=== PATIENT | female | born 1945 | race Caucasian/White ===

== ENCOUNTER 2019-11-23 11:34 | Outpatient (CLI) | payer MEDICARE, SELFPAY ==
[2019-11-23 12:37] LABS: Alanine Aminotransferase 18 U/L (4-35); Albumin Level 4.5 g/dL (3.5-5.1); Alkaline Phosphatase 97 U/L (38-126); Aspartate Amino Transferase 25 U/L (14-36); Bilirubin,Total 0.9 mg/dL (0.2-1.3); Blood Urea Nitrogen 31 mg/dL (7-17); Calcium 9.8 mg/dL (8.4-10.2); Carbon Dioxide 29 mmol/L (22-30); Chloride 104 mmol/L (98-107); Estimated Glomerular Filt Rate 37; Glucose 99 mg/dL (65-105); Potassium 4.1 mmol/L (3.4-5.0); Sodium 141 mmol/L (137-145)
== END 2019-11-23 11:35 | disposition home or self-care (01) ==
PROVIDERS: PCP Family Medicine; Visit Provider Family Medicine
DX: N28.9 Disorder of kidney and ureter, unspecified (principal)
CPT/HCPCS: 36415; 80053

== ENCOUNTER 2020-05-18 13:47 | Outpatient (CLI) | payer MEDICARE, SELFPAY ==
[2020-05-18 14:36] LABS: Basophils Percent Auto 0.4 % (0.2-1.2); Eosinophils Absolute Auto 0.1 K/mm3 (0-0.3); Eosinophils Percent Auto 1.3 % (0-4.4); Hematocrit 40.7 % (37.0-47.0); Hemoglobin 13.5 g/dL (12.0-15.0); Immature Granulocyte Absolute 0.01 K/mm3 (0.00-0.031); Immature Granulocyte Percent A 0.2 % (0-0.5); Immature Platelet Fraction Pct 3.5 % (0.9-11.2); Lymphocytes Absolute Auto 1.49 K/mm3 (0.9-3.2); Lymphocytes Percent Auto 27.4 % (18.3-44.2); Mean Corpuscular HGB Conc 33.2 g/dl (32-36); Mean Corpuscular Hemoglobin 31.5 pg (26-34); Mean Corpuscular Volume 94.9 fl (80-100); Mean Platelet Volume 11.3 fl (7.4-10.4); Monocytes Absolute Auto 0.5 K/mm3 (0.1-0.6); Monocytes Percent Auto 9.4 % (2.6-8.5); Neutrophils Absolute Auto 3.3 K/mm3 (1.3-6.7); Neutrophils Percent Auto 61.3 % (45.5-73.1); Platelet Count Result 146 k/mm3 (150-375); Red Blood Count 4.29 M/mm3 (4.2-5.4); Red Cell Distribution Width 14.6 % (11.5-14.5); White Blood Count 5.4 K/mm3 (4.5-10.0)
[2020-05-18 14:49] LABS: Alanine Aminotransferase 15 U/L (4-35); Albumin Level 4.3 g/dL (3.5-5.1); Alkaline Phosphatase 86 U/L (38-126); Anion Gap 7 mmol/L (8-16); Aspartate Amino Transferase 26 U/L (14-36); Bilirubin,Total 0.5 mg/dL (0.2-1.3); Blood Urea Nitrogen 34 mg/dL (7-17); Calcium 9.2 mg/dL (8.4-10.2); Carbon Dioxide 27 mmol/L (22-30); Chloride 107 mmol/L (98-107); Estimated Glomerular Filt Rate 30; Glucose 106 mg/dL (65-105); Potassium 4.4 mmol/L (3.4-5.0); Sodium 141 mmol/L (137-145)
[2020-05-18 16:58] LABS: Hemoglobin A1C 5.3 % (<5.7)
== END 2020-05-18 13:48 | disposition home or self-care (01) ==
PROVIDERS: PCP Family Medicine; Visit Provider Family Medicine
DX: R73.03 Prediabetes (principal); I10 Essential (primary) hypertension
CPT/HCPCS: 36415; 80053; 83036; 85025; 85055

== ENCOUNTER 2020-10-12 11:14 | Outpatient (CLI) | payer MEDICARE, SELFPAY ==
[2020-10-12 12:32] LABS: Hemoglobin A1C 5.5 % (<5.7)
[2020-10-12 12:39] LABS: Alanine Aminotransferase 17 U/L (4-35); Albumin Level 4.3 g/dL (3.5-5.1); Alkaline Phosphatase 95 U/L (38-126); Anion Gap 6 mmol/L (8-16); Aspartate Amino Transferase 26 U/L (14-36); Bilirubin,Total 0.8 mg/dL (0.2-1.3); Blood Urea Nitrogen 29 mg/dL (7-17); Calcium 9.4 mg/dL (8.4-10.2); Carbon Dioxide 29 mmol/L (22-30); Chloride 106 mmol/L (98-107); Cholesterol 161 mg/dL (0-200); Estimated Glomerular Filt Rate 34; Glucose 104 mg/dL (65-105); HDL Direct 54 mg/dL; Potassium 4.1 mmol/L (3.4-5.0); Sodium 141 mmol/L (137-145); Triglycerides 110 mg/dL (<150)
[2020-10-12 12:51] LABS: LDL Cholesterol Direct 75 mg/dL
== END 2020-10-12 11:15 | disposition home or self-care (01) ==
PROVIDERS: PCP Family Medicine; Visit Provider Family Medicine
DX: I10 Essential (primary) hypertension (principal); R73.03 Prediabetes
CPT/HCPCS: 36415; 80053; 80061; 83036

== ENCOUNTER 2021-04-30 16:49 | Outpatient (CLI) | payer MEDICARE, SELFPAY ==
[2021-04-30 18:20] LABS: Add Urine Microscopic? YES; Appearance Urine Cloudy (Clear); Bacteria Urine Trace /hpf; Bilirubin Urine Negative (Negative); Blood Urine Negative (Negative); Color Urine Yellow (Yellow); Glucose Urine UA Negative (Negative); Ketones Urine Negative (Negative); Leukocyte Esterase Ur 3+ LEU/UL (NEGATIVE); Mucus Urine Rare /lpf; Nitrate Urine Negative (Negative); Protein Urine Negative (Negative); Specific Grav Ur 1.018 (1.001-1.035); Squamous Epithelial Cell Urine Many /hpf (Few); Urobilinogen Urine Negative mg/dL (<2.0); WBC Urine 51-75 /hpf (0-3)
[2021-04-30 18:37] LABS: Creatinine Urine 186.9 mg/dL; Total Protein Urine Random 10 mg/dL; Ur Ttl Prot Creatinine Ratio 0.05 mg/mg (0-0.20)
== END 2021-04-30 16:50 | disposition home or self-care (01) ==
LOC: ANHLAB 16:54
PROVIDERS: PCP Family Medicine
DX: N18.31 Chronic kidney disease, stage 3a (principal); N18.32 Chronic kidney disease, stage 3b
CPT/HCPCS: 81001; 82570; 84156; 87086; 87088

== ENCOUNTER 2022-05-15 13:30 | Outpatient (RCR) | payer MEDICARE, SELFPAY ==
--- NOTE | 2022-04-17 11:18 | PTOPEVAL ---
PHYSICAL THERAPY INITIAL EVALUATION. Thank you for referring Ines Bustos to [facility].? The patient is scheduled to be seen for therapy? 2x/week for 4 weeks. Please review, sign, date and return this plan of care SHANIQUA. I agree with and certify that the following plan of care is medically necessary. Referring Physician Date Attending Provider: Neli Salinas, PA *PT Outpatient Evaluation Start: 04/17/22 Evaluation Information Diagnosis evangelist hip pain Onset ~7 months Additional Evaluation Detail Pt arrived 10 mins late for evaluation this date. Subjective Information Pt states she has had evangelist hip Query Text:As Reported By Patient/ pain since winter. She states Family all winter she sat in her recliner all winter and then when it was nice outside again she realized she could not walk well. She reports a history of knee pain with a TKA but her ortho ruled her knees out as the cause of her hip pain. Pt states her hips feel better when she is in the recliner with her feet reclined, and her pain is worse walking or bearing weight. She states she can be on her feet for no longer than 15 min before she has to sit d/t pain. She also reports SOB is a limiting factor. Pain Assessment Right Hip(s) Reported Pain Level 0 Pain Description Aching,Dull Pain Frequency Chronic,Intermittent Lowest Pain Intensity 0 Greatest Pain Intensity 4 Left Hip(s) Reported Pain Level 0 Pain Description Aching,Dull Pain Frequency Chronic,Intermittent Lowest Pain Intensity 0 Greatest Pain Intensity 6 Lower Extremity Muscle Strength Testing Hip Strength Right Hip Flexion Strength 3+ Fair + Hip Extension Strength 3+ Fair + Hip Abduction Strength 2 Poor Left Hip Flexion Strength 3 Fair Hip Extension Strength 3+ Fair + Hip Abduction Strength 2 Poor Hip Strength Comments able to complete 10 glute bridges Knee Strength Bilateral Knee Flexion Strength 4- Good - Knee Extension Strength 4- Good - Muscle Length Testing Domingo Test Shortened Muscles Short (R) Rectus Femoris,Short
--- NOTE | 2022-05-15 14:29 | PTOPDC ---
Evaluation Information Assessment Status Discharge Diagnosis evangelist LE pain Subjective Information Pt states she is doing better. She states she can lift her legs into her car without having to use her arms. She reports still having some troubles getting of the couch because of how soft and low it is. Pt reports she has learned a lot from therapy. Reported Pain Level Pain Score 0,0: Self Report Assessment PT Clinical Summary Ines presents to therapy today for her progress report following 7 visits of skilled therapy. Today she demonstrates improved strength but is still grossly 4-/5 throughout her evangelist LEs. She demonstrates significant improvement with her functional mobility assessment. She improved her TUG time from 23s to 12s with the use of BUEs, her 5xSTS time from 34s to 19s. She also improved her gait speed. She continues to have moderate deviations during stair ambulation and gait on a level surface. Continuation of skilled therapy services are indicated, however pt would like to be discharged at this time to continue her HEP at home. Therefore she will be discharged. She was instructed to follow up with her referring provider if needed. Plan of Care PT Services Indicated No Treatment Frequency and to be d/c'ed Duration
== END 2022-05-16 08:59 | disposition home or self-care (01) ==
LOC: ANHPT 13:30
PROVIDERS: PCP Family Medicine; Visit Provider Physician Assistant
DX: M25.551 Pain in right hip (principal); M25.552 Pain in left hip
CPT/HCPCS: 97110; 97161; 97530